=== PATIENT | female | born 1985 | race Two or more races ===

== ENCOUNTER 2023-07-23 08:43 | Emergency (ER) | payer MEDICAID, OTHER ==
[~2023-07-23] VITALS: Ht 162.6 cm; Wt 70.0 kg
[2023-07-23 08:57] VITALS: TEMP 97.6; O2SAT 96
[2023-07-23] MEDS ORDERED: MORPHINE SULFATE 4 MG/ML SYR/VIAL IM ONE (09:45)
[2023-07-23] MEDS ORDERED: ONDANSETRON HCL 4 MG/2 ML VIAL IM ONE (09:45)
[2023-07-23 10:42] VITALS: BP 132/84; PULSE 89; RESP 18
[2023-07-23] MEDS ORDERED: IBUP-1455 PO ×3 (11:08→11:10)
[2023-07-23] MEDS ORDERED: AUG875T PO ×3 (11:08→11:10)
== END 2023-07-23 11:21 | disposition home or self-care (01) ==
LOC: ER 08:43
DX: S02.2XXA Fracture of nasal bones, initial encounter for closed fracture (principal); W19.XXXA Unspecified fall, initial encounter; Y93.89 Activity, other specified; Y92.89 Other specified places as the place of occurrence of the external cause; Y99.8 Other external cause status
CPT/HCPCS: 70450; 70486; 72125; 96372; 99285; J2270; J2405